=== PATIENT | male | born 1950 | race Caucasian/White ===

== ENCOUNTER 2016-12-18 18:12 | Emergency (ER) | payer MEDICARE, OTHER ==
[2015-06-09 11:53] VITALS: BMI 30.4
[~2016-12-18 18:12] MED LIST: FLUTICASONE PRO16 GM NASAL; HYDROCODON-ACE1 EAC7 PO; LISINOPRIL10 MG PO; MOBIC7.5 MG PO; NORVASC10 MG PO; OSTEO BI-FLEX1 EAC1 PO; PLAVIX75 MG PO
[2016-12-18 19:24] LABS: BASOPHILS 0.8 % (0-2); EOSINOPHILS 7.1 % (0-7); HEMATOCRIT 37.5 % (42.0-54.0); LYMPHOCYTES 32.9 % (15-50); MCHC 34.7 g/dL (31.0-37.0); MCV 98.2 fL (80.0-100.0); MEAN PLATELET VOLUME 10.1 fL (7.4-10.4); MONOCYTES 15.3 % (2-11); NEUTROPHILS 43.9 % (40-80); PLATELET COUNT 93 10x3/uL (130-400); RBC 3.82 10x6/uL (4.20-6.10); RDW 13.8 % (11.5-14.5); WBC 3.8 10x3/uL (4.8-10.8)
[2016-12-18 19:34] LABS: ALBUMIN 3.1 g/dL (3.4-5.0); ANION GAP 12.8 mmol/L (8-16); BILIRUBIN - TOTAL 0.56 mg/dL (0.2-1.3); CALCIUM 9.4 mg/dL (8.5-10.1); CARBON DIOXIDE 25.3 mmol/L (21.0-32.0); CREATININE - SERUM 1.2 mg/dL (0.6-1.3); POTASSIUM - SERUM 4.1 mmol/L (3.5-5.1); PROTEIN - SERUM 7.7 g/dL (6.4-8.2)
[2016-12-18 20:01] LABS: PLATELET ESTIMATE DECREASED
[2016-12-18 21:20] LABS: CKMB 0.1 U/L (0.0-3.6); CREATINE KINASE 84 UL (21-232)
[2016-12-18 21:32] LABS: APPEARANCE CLEAR (CLEAR); BILIRUBIN NEGATIVE (NEGATIVE); COLOR YELLOW (YELLOW); GLUCOSE NEGATIVE (NEGATIVE); KETONE NEGATIVE (NEGATIVE); LEUKOCYTE ESTERASE NEGATIVE (NEGATIVE); NITRITE NEGATIVE (NEGATIVE); PROTEIN NEGATIVE (NEGATIVE); UROBILINOGEN NORMAL (NORMAL)
[2016-12-19] MEDS ORDERED: LIPITOR40 MG PO (12:17)
[2016-12-19] MEDS ORDERED: ISOSORBIDE MONO30 M1 PO (12:18)
[2016-12-19] MEDS ORDERED: GLUCOPHAGE500 MG PO (12:18)
[2016-12-19] MEDS ORDERED: LOW DOSE ASPIRI81 M1 PO (12:20)
== END 2016-12-18 22:20 | disposition home or self-care (01) ==
LOC: D.ER 18:12
PROVIDERS: Emergency Medicine
DX: E86.0 Dehydration (principal); I10 Essential (primary) hypertension; E11.9 Type 2 diabetes mellitus without complications; R00.1 Bradycardia, unspecified

== ENCOUNTER 2016-12-19 05:48 | Observation (INO) | payer MEDICARE, OTHER ==
[~2016-12-19] VITALS: Ht 185.4 cm; Wt 85.7 kg
--- NOTE | ~2016-12-19 | HEMODYNAMI ---
PATIENT:YANDY TIRADO MEDICAL RECORD: [id number] : 50 LOCATION:D. D.2118 ADMISSION DATE: 12/19/16 Generatedon:12/19/201614:05 Patient name: YANDY TIRADO Patient #: [id number] SSN: DO B: 1950 Date of study: 12/19/2016 Page: Of Hemodynamic Procedure Report Patient Data Patient Demographics Procedure consent was obtained First Name: YANDY Gender: Male Last Name: CANDIDA : 1950 Middle Initial: D Age: 66 year(s) Patient #: [id number] Race: Additional ID: [id number] Contact details [address]: [address] [place] [address] cutoff State: [place] City: [place] Zip code: [address] Past Medical History Allergies Allergen Reaction Date Comments Reported Penicillins 06/11/2015 Other allergy 12/19/2016 PCN Admission Admission Data Admission Date: 12/19/2016 Admission Time: 6:42 Admit Source: Other Room #: D.2118 Procedure Procedure Types Cath Procedure Diagnostic Procedure [facility] w/Coronaries Miscellaneous Procedures Moderate Sedation up to 15 minutes Procedure Description Procedure Date Procedure Date: 12/19/2016 Procedure Start Time: 13:53 Procedure End Time: 14:03 Procedure Staff Name Function Jeffrey Payan MD Performing Physician Meenakshi Neff RT Scrub Jossie Salazar RN Nurse Alistair Trejo RT Monitor Procedure Data Cath Procedure Fluoroscopy Diagnostic fluoroscopy Total fluoroscopy Time: 1.9 time: 1.9 min min Diagnostic fluoroscopy Total fluoroscopy dose: 448 dose: 448 mGy mGy Contrast Material Contrast Material Type Amount (ml) Isovue 300 53 Entry Location Entry Primary Successful Side Size Upsize Upsize Entry Closure Aviles ccessful Closure Location (Fr) 1 (Fr) 2 (Fr) Remarks Device Remarks Radial Right 6 Fr Mechanical artery Short Compression Estimated blood loss: 5 ml Diagnostic catheters Device Type Used For End Catheter Placement Terumo 5Fr Nabil 110cm Procedure catheter Diagnostic Terumo 5Fr Procedure [place] 110cm catheter Procedure Complications No complications Procedure Medications Medication Administration Route Dosage Oxygen NC 3 l/min Heparin Flush Bag added to field 2 bags (1000units/500ml NS) Lidocaine 2% added to field 20 0.9% NaCl I.V. 100 ml/hr Versed I.V. 2 mg Fentanyl I.V. 50 mcg Versed I.V. 1 mg Fentanyl I.V. 50 mcg Versed I.V. 0.5 mg Fentanyl I.V. 50 mcg Hemodynamics Rest Heart Rate: 81 (bpm) Snapshots Pre Cath Intra NCS Post Cath Vital Signs Time Heart Resp SPO2 NIBP (mmHg) Rhythm Pain Sedation Rate (ipm) (%) Status Level (bpm) 13:28:30 80 20 96 164/91(138) NSR 0 (11) 10(A) , No pain 13:32:48 82 19 94 137/109(129) NSR 0 (11) 10(A) , No pain 13:37:00 81 18 93 145/87(125) NSR 0 (11) 10(A) , No pain 13:41:18 80 17 92 146/83(121) NSR 0 (11) 10(A) , No pain 13:45:30 83 18 93 149/86(132) NSR 0 (11) 10(A) , No pain 13:49:42 87 20 91 138/89(132) NSR 0 (11) 10(A) , No pain 13:53:52 86 15 92 139/85(114) NSR 0 (11) 9(A) , No pain 13:57:58 104 15 93 116/74(96) NSR 0 (11) 9(A) , No pain 14:03:11 100 16 94 135/85(114) NSR 0 (11) 10(A) , No pain Medications Time Medication Route Dose Verified Delivered Reason Notes Effe ctiveness by by 13:27:52 Oxygen NC 3 Jossie Jossie used for l/min Marie Marie key holder RN 13:28:01 Heparin Flush added 2 Jossie Jossie used for Bag to bags Marie Marie procedure (1000units/500ml field RN RN NS) 13:28:09 Lidocaine 2% added 20ml Jossie Jossie used for to vial Marie Marie procedure field RN RN 13:28:18 0.9% NaCl I.V. 100 Jossie Jossie used for ml/hr Marie Marie key holder RN 13:48:41 Versed I.V. 2 mg Jossie Jossie for Marie Marie sedation RN RN 13:48:49 Fentanyl I.V. 50 Jossie Jossie for mcg Marie Marie sedation RN RN 13:52:21 Versed I.V. 1 mg Jossie Jossie for Marie Marie sedation RN RN 13:52:37 Fentanyl I.V. 50 Jossie Jossie for mcg Marie Marie sedation RN RN 13:56:16 Fentanyl I.V. 50 Jossie Jossie for mcg Marie Marie sedation RN RN 13:56:51 Versed I.V. 0.5 Jossie Jossie for mg Marie Marie sedation RN maitre d' Log Time Note 13:00:00 Meenakshi Counts RT(R) sent for patient. Start room use. 13:19:26 Informed consent obtained and on chart 13:19:29 Admit Source: Other 13:20:05 Time tracking: Regular hours 13:20:08 Plan of Care:Hemodynamics will remain stable., Cardiac rhythm will remain stable., Comfort level will be maintained., Respiratory function will remain adequate., Patient/ family verbilizes understanding of procedure., Procedure tolerated without complication., Recovers from procedure without complications.. 13:20:14 Patient received from Med II to CCL 2 Alert and oriented. Tansferred to table in Supine position. 13:20:15 Warm blankets applied, and chico hugger turned on for patient comfort. 13:20:15 Correct patient and procedure confirmed by team. 13:20:15 ECG and BP/O2 sat monitors applied to patient. 13:27:26 Vital chart was started 13:27:52 Oxygen 3 l/min NC was administered by Jossie Salazar RN; used for procedure; 13:28:01 Heparin Flush Bag (1000units/500ml NS) 2 bags added to field was administered by Jossie Salazar RN; used for procedure; 13:28:09 Lidocaine 2% 20ml vial added to field was administered by Jossie Salazar RN; used for procedure; 13::18 0.9% NaCl 100 ml/hr I.V. was administered by Jossie Salazar RN; used for procedure; 13:33:30 Baseline sample Acquired. 13:33:35 Rhythm: sinus rhythm 13:33:40 Full Disclosure recording started 13:39:43 Lab Result : Hemoglobin 13 g/dl 13:39:43 Lab Result : Hematocrit 37.5 % 13:39:43 Lab Result : BUN 20 mg/dl 13:39:43 Lab Result : Creatinine 1.2 mg/dl 13:40:47 H&P Date Dictated: 12/19/2016 Within 30 days and on chart.. 13:40:48 Pre-procedure instructions explained to patient. 13:40:49 Pre-op teaching completed and patient verbalized understanding. 13:40:51 Family in waiting room. 13:40:52 Patient NPO since Midnight. 13:41:11 Patient allergic to Other allergyPCN 13:41:19 Is the patient allergic to Iodine/contrast media? No. 13:41:21 Is patient on blood thinner?No 13:41:38 Patient diabetic? Yes. 13:42:01 If diabetic: On Metformin? Yes 13:42:06 If on Metformin: Last Dose? 12/18/2016 13:42:09 Previous problem with sedation/anesthesia? No ? 13:42:11 Snore? Yes 13:42:11 Sleep apnea? Yes 13:42:12 Deviated septum? No 13:42:14 Opens mouth fully? Yes 13:42:15 Sticks out tongue? Yes 13:42:18 Airway obstruction? No ? 13:42:21 Dentures? Yes in tight 13:42:26 Modified Rc's test Ulnar < 7 seconds 13:42:28 Patient pain scale 0/10 ?. 13:42:32 IV patent on arrival in left forearm with 0.9% NaCl at [facility]. 13:42:34 Lab results completed and on chart. 13:42:36 Right Radial & Right Groin area was prepped with chlora-prep and draped in sterile fashion 13:42:37 Alarms reviewed by R. N. 13:42:37 Sharps counted by scrub and verified by R.N. 13:42:41 Use device set Radial Dx 13:42:42 MBrace Wrist Support opened to sterile field. 13:42:42 Tegaderm 4 x 4 opened to sterile field. 13:42:43 Acist Manifold opened to sterile field. 13:42:44 Acist Hand Control opened to sterile field. 13:42:45 Acist Syringe opened to sterile field. 13:42:46 Medline Cath Pack opened to sterile field. 13:42:46 Bag Decanter opened to sterile field. 13:42:47 Terumo 6Fr Slender Glidesheath opened to sterile field. 13:42:47 St Hi 260cm J .035 wire opened to sterile field. 13:45:49 Zero performed for pressure channel P1 13:46:11 Physician arrived 13:46:11 --------ALL STOP TIME OUT------ 13:46:12 Final Timeout: patient, procedure, and site verified with staff and physician. All members of the team are in agreement. 13:46:21 Right Radial & Right Groin site verified by team. 13:46:24 Physical assessment completed. ASA score P 2 - A patient with mild systemic disease as per Jeffrey Payan MD. 13:47:22 Sedation plan: IV Moderate Sedation Versed, Fentanyl 13:48:41 Versed 2 mg I.V. was administered by Jossie Salazar RN; for sedation; 13:48:49 Fentanyl 50 mcg I.V. was administered by Jossie Salazar RN; for sedation; 13:52:21 Versed 1 mg I.V. was administered by Jossie Salazar RN; for sedation; 13:52:37 Fentanyl 50 mcg I.V. was administered by Jossie Salazar RN; for sedation; 13:53:12 Procedure started. 13:53:19 Local anesthetic to right radial artery with Lidocaine 2% by Jeffrey Payan MD.INITIAL ACCESS ONLY 13:53:33 A 6 Fr Short sheath was inserted into the Right Radial artery 13:54:40 A Terumo 5Fr Nabil 110cm catheter was advanced over the wire and used for Procedure. 13:55:06 LV gram done using ROTH 13:55:09 Injector settings: Ml/sec: 5, Volume: 15, 13:55:21 EF : 60 % 13:56:10 RCA angiography performed. 13:56:16 Fentanyl 50 mcg I.V. was administered by Jossie Salazar RN; for sedation; 13:56:23 Catheter exchanged over wire. 13:56:51 Versed 0.5 mg I.V. was administered by Jossie Salazar RN; for sedation; 13:57:14 A Diagnostic Terumo 5Fr [place] 110cm catheter was advanced over the wire and used for Procedure. 13:57:34 LCA angiography performed. 13:59:22 Catheter removed. 13:59:27 Terumo TR Band Standard opened to sterile field. 13:59:35 Sheath removed intact; hemostasis achieved with Mechanical Compression to the Right Radial artery. 13:59:36 Procedure ended.(Physican Out) 14:01:03 Fluoroscopy time 01.90 minutes. 14:01:13 Flurop Dose total: 448 14:01:13 Fluoroscopy dose: 448 mGy 14:01:17 Contrast amount:Isovue 300 53ml. 14:01:18 Sharps counted by scrub and verified by R.N. 14:01:20 TR band inflated with 11cc of air. 14:01:21 Insertion/operative site no bleeding no hematoma. 14:01:27 Post right radial artery:stable, soft, clean and dry 14:01:28 Post Procedure Pulses reassessed and unchanged 14:01:30 Post-procedure physical assessment completed. ASA score P 2 - A patient with mild systemic disease as per Jeffrey Payan MD. 14:01:32 Post procedure rhythm: unchanged. 14:01:33 Estimated blood loss: 5 ml 14:01:34 Post procedure instruction explained to patient.Patient verbalizes understanding. 14:01:35 Patient needs reinforcement of post procedure teaching. 14:02:16 Procedure type changed to Cath procedure, Diagnostic procedure, LHC, LHC w/Coronaries, Miscellaneous Procedures, Moderate Sedation up to 15 minutes 14:02:43 Procedure and supply charges have been captured, reviewed, submitted and are correct. 14:02:46 Procedure Complication : No complications 14:02:48 Vital chart was stopped 14:02:48 See physician's report for complete and final results. 14:02:50 Report given to PCU. 14:02:53 Patient transfered to PCU with Stretcher. 14:03:03 Procedure ended. 14:03:03 Full Disclosure recording stopped 14:03:05 End room use (Document Last) Device Usage Item Name Manufacture Quantity Catalog Hospital Part Current Minimal Lot# / Number Charge Number Stock Stock Serial# Code ra Advanced 140-0250-00 [id number] 30392 [id number] 5 Wrist Vascular Support Dynamics Tegaderm 4 3M 1 [id number] 109580 486185 943552 5 x 4 Acist Acist 1 47001 413872 027001 566095 5 Manifold [employer] Inc Acist Hand Acist 1 11723 836878 770913 210232 5 Control Medical Systems Inc Acist Acist 1 59607 425905 974917 918594 20 Syringe Medical Systems Inc Medline Cardinal 1 [id number] 611865 64039 365581 5 Cath Pack Health Bag Microtek 1 2002S 677306 64124 750451 5 Decanter Medical Inc. Terumo 6Fr Terumo 1 [id number] 070391 167913 617604 [address] Hi St Hi 1 186739 298440 624977 686469 30 260cm J .035 wire Terumo 5Fr Terumo 1 40-5898 201096 851406 308208 5 Nabil 110cm catheter Diagnostic Terumo 1 40-6894 941218 257019 431493 5 Terumo 5Fr [place] 110cm catheter Terumo TR Terumo 1 [id number] 690555 034622 797669 40 Band Standard Signature Audit [place] Stage Time Signature Unsigned Intra-Procedure 12/19/2016 Alistair Trejo 2:05:15 PM RT(R) Signatures Monitor : Alistair Trejo RT Signature : Date : Time : [facility] [address] [facility] [place] [address]
--- NOTE | ~2016-12-19 | DS ---
PATIENT:YANDY JACOBO :50 MEDICAL RECORD: [id number] DISCHARGE SUMMARY ADMISSION DATE: 12/19/16 DISCHARGE DATE: 12/19/16 DATE OF DISCHARGE: 12/19/2016. DISCHARGE DIAGNOSES: 1. Angina. 2. Coronary artery disease. 3. Previous percutaneous transluminal coronary angioplasty stent. 4. Hypertension. 5. Hyperlipidemia. HOSPITAL COURSE: Mr. Jacoob presents with anginal symptomatology; however, cardiac catheterization reveals no significant new disease, wide patency of the previously placed stent. He is discharged home with no change in his medications as he is already on Imdur. TRANSINT:[id number] Voice Confirmation ID: [id number] DOCUMENT ID: [id number] BELLA DEJESUS MD CC: [id number] DICTATION DATE: 12/19/161401 COMPLAINT EVALUATION SUPERVISOR: 12/20/16 0025 DIS IN 12/19/16 [facility] [address] [place] [address]
--- NOTE | ~2016-12-19 | OP ---
PATIENT NAME: YANDY TIRADO MEDICAL RECORD: [id number] :50 LOCATION:D.M2 D.2118 ADMISSION DATE:12/19/16 SURGEON: BELLA DEJESUS MD OPERATION DATE: 12/19/16 DATE OF OPERATION: 12/19/2016 PROCEDURES: 1. Left heart catheterization. 2. Selective coronary angiography. 3. Left ventriculogram. INDICATION: Chest pain compatible with angina. PROCEDURE IN DETAIL: After informed consent was obtained and after detailed explanation of risks, benefits as well as alternative therapies, the patient elected to proceed with angiogram and heart catheterization. The right femoral area was prepped and draped in normal sterile fashion. The right femoral artery was cannulated via modified Seldinger technique with placement of 5-Surinamese sheath. All catheters exchanged through this sheath. FINDINGS: Left ventriculogram was performed in standard 30-degree ROTH view, reveals good cardiac wall motion throughout all segments. Overall ejection fraction estimated at 55%. SELECTIVE CORONARY ANGIOGRAPHY: 1. Left main showed no significant angiographic disease. 2. Left anterior descending has moderate irregularities, but no flow-limiting stenosis. 3. The left circumflex has moderate irregularities, but no flow-limiting stenosis. 4. The right coronary has previously placed stent. This is widely patent with no significant restenosis and no disease elsewise. OVERALL IMPRESSION: Wide patency of the previously placed stent. No disease elsewise. Continue medical management of the coronary artery disease and cardiac risk factors. TRANSINT:[id number] Voice Confirmation ID: [id number] DOCUMENT ID: [id number] BELLA DEJESUS MD CC: [id number] DICTATION DATE: 12/19/16 1404 CORE DRIER: 12/19/162044 DIS IN 12/19/16 [facility] [address] [place] [id number]
[2016-12-19 07:01] LABS: CREATINE KINASE 78 UL (21-232); TROPONIN-I < 0.017 ng/mL (0.000-0.060)
[2016-12-19 08:07] VITALS: BP 147/82
[2016-12-19 10:42] VITALS: BP 147/82; BMI 24.9
[2016-12-19 12:06] VITALS: BP 118/67
[2016-12-19] MEDS ORDERED: LIPITOR40 MG PO (12:17)
[2016-12-19] MEDS ORDERED: ISOSORBIDE MONO30 M1 PO (12:18)
[2016-12-19] MEDS ORDERED: GLUCOPHAGE500 MG PO (12:18)
[2016-12-19] MEDS ORDERED: LOW DOSE ASPIRI81 M1 PO (12:20)
--- NOTE | 2016-12-19 14:28 | NUR ---
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 CLEAN CATH. TR BAND ON. SITE CLEAN WITHOUT ANY BLEEDING NOR EDEMA
[2016-12-19 14:44] VITALS: BP 134/79
[2016-12-19 15:10] VITALS: Ht 185.4 cm; Wt 85.7 kg
--- NOTE | 2016-12-19 19:39 | NUR ---
REVIEWED DISCHARGE INSTRUCTIONS WITH PT AND BOTH STATE UNDERSTANDING COPY GIVEN DCD LAC SALINE LOCK WITH IV CATHETER INTACT SITE FREE OF REDNESS OR EDEMA OCCLUSIVE DRSG APPLIED TO RT WRIST PT DISCHARGED HOME IN STABLE CONDITION WITH ALL PERSONAL BELONGINGS LEFT VIA W/C
== END 2016-12-19 18:19 | disposition home or self-care (01) ==
LOC: D.ER 05:48 → OBSVTIME 06:42 → D.M2 06:42
PROVIDERS: Emergency Medicine; ADMIT Internal Medicine Interventional Cardiology
DX: I25.119 Atherosclerotic heart disease of native coronary artery with unspecified angina pectoris (principal); I11.9 Hypertensive heart disease without heart failure; Z95.5 Presence of coronary angioplasty implant and graft; E78.5 Hyperlipidemia, unspecified

== ENCOUNTER → 2019-11-21 08:27 | Outpatient (CLI) | payer MEDICARE, OTHER ==
[2016-12-19 15:10] VITALS: BMI 24.9
[~2019-11-21 08:27] MED LIST changes: +GLUCOPHAGE500 MG PO; +ISOSORBIDE MONO30 M1 PO; +LIPITOR40 MG PO; +LOW DOSE ASPIRI81 M1 PO
== END | disposition home or self-care (01) ==
LOC: D.HCCECHO 08:27
PROVIDERS: ATTEND Internal Medicine Cardiovascular Disease
DX: I25.10 Atherosclerotic heart disease of native coronary artery without angina pectoris (principal)

== ENCOUNTER 2019-12-05 11:01 | Outpatient (CLI) | payer MEDICARE, OTHER ==
[~2019-12-05] VITALS: Ht 177.8 cm; Wt 104.0 kg
--- NOTE | ~2019-12-05 | HEMODYNAMI ---
PATIENT:YANDY TIRADO MEDICAL RECORD: [id number] : 50 LOCATION:[facility] ADMISSION DATE: 12/05/19 Generatedon:12/05/201915:31 Patient name: YANDY TIRADO Patient #: [id number] SSN: DO B: 1950 Date of study: 12/05/2019 Page: Of Hemodynamic Procedure Report Patient Data Patient Demographics Procedure consent was obtained First Name: YANDY Gender: Male Last Name: CANDIDA : 1950 [facility] Initial: D Age: 69 year(s) Patient #: [id number] Race: Additional ID: [id number] Contact details [address]: [address] [place] [address] cutoff State: [place] City: [place] Zip code: [address] Past Medical History Allergies Allergen Reaction Date Comments Reported Penicillins 06/11/2015 Other allergy 12/19/2016 PCN Other allergy 12/05/2019 PCN Admission Admission Data Admission Date: 12/05/2019 Admission Time: 11:01 Arrival Date: 12/05/2019 Arrival Time: 0:00 Admit Source: Other Insurance Payor: Medicare [facility] #: [id number] Height (in.): 70 BSA: 2.21 (m2) Height (cm.): 177.8 BMI: 32.9 (kg/m2) Weight (lbs.): 229.28 Weight (kg.): 104 Lab Results Lab Result Date: 12/05/2019 Lab Result Time: 0:00 Biochemistry Name Units Result Min Max BUN mg/dl 18 --(---*)-- 7 18 Creatinine mg/dl 1.3 --(---*)-- 0.6 1.3 eGFR ml/min 58 *-(----)-- 90 120 NONAFRICAN CBC Name Units Result Min Max Hematocrit % 29.7 *-(----)-- 42 54 Hemoglobin g/dl 10 *-(----)-- 13.5 17.5 Procedure Procedure Types Cath Procedure Diagnostic Procedure [facility] w/Coronaries Sedation Charges Moderate Sedation up to 45 minutes PCI Procedure Coronary Stent Coronary Stent Initial Hemochron ACT Test Procedure Description Procedure Date Procedure Date: 12/05/2019 Procedure Start Time: 14:43 Procedure End Time: 15:27 Procedure Staff Name Function Tommy Christopher MD Performing Physician Graciela Andre RT Monitor Beryl Goodrich RT Scrub Parul Thomason RN Nurse Juanis Miranda RT Security Analyst Procedure Data Cath Procedure Fluoroscopy Diagnostic fluoroscopy Total fluoroscopy Time: time: 14.1 min 14.1 min Diagnostic fluoroscopy Total fluoroscopy dose: dose: 2058 mGy 2058 mGy Contrast Material Contrast Material Type Amount (ml) Isovue 370 161 Entry Location Entry Primary Successful Side Size Upsize Upsize Entry Closure Aviles ccessful Closure Location (Fr) 1 (Fr) 2 (Fr) Remarks Device Remarks Radial Right 6 Fr Mechanical artery Short Compression Femoral Right 6 Fr Exoseal artery Short Estimated blood loss: 10 ml Diagnostic catheters Device Type Used For End Catheter Placement DIAGNOSTIC [place] 110cm 5 Procedure Fr catheter ([id number]) DIAGNOSTIC JL 3.5 5Fr Procedure catheter ([id number]) Procedure Complications No complications Procedure Medications Medication Administration Route Dosage Oxygen etCO2 Nasal cannula 2 l/min Lidocaine 2% added to field 20 Heparin Flush Bag added to field 2 bags (1000units/500ml NS) 0.9% NaCl I.V. 100 ml/hr Radial Cocktail added to field 1 syringe (Verapamil 2mg/Nitro 400mcg/Heparin 1500units) Versed I.V. 1 mg Fentanyl I.V. 50 mcg Versed I.V. 1 mg Fentanyl I.V. 50 mcg Radial Cocktail I.A. 1 syringe (Verapamil 2mg/Nitro 400mcg/Heparin 1500units) Versed I.V. 1 mg Versed I.V. 1 mg Fentanyl I.V. 50 mcg Heparin Bolus I.V. 9000 units Fentanyl I.V. 50 mcg Plavix P.O. 600 mg Hemodynamics Rest BSA: 2.21 (m2) HGB: 10 (g/dl) O2 Consumption: Estimated: 253.69 (ml/min) O2 Cons umption indexed: Estimated:114.79 (ml/min/m) Heart Rate: 67 (bpm) Pressure Samples Time Site Value (mmHg) Purpose Heart Use Rate(bpm) 14:48 LV 131/28,19 Snapshot 86 14:48 AO 116/63(88) Pullback 81 14:48 LV 135/2,9 Pullback 81 Gradients Valve Time Site 1 Site 2 Mean SEP/DFP Peak To Heart Use (mmHg) (sec/min) Peak Rate (mmHg) (bpm) Aortic 14:48 LV AO 16 21 19 81 135/2,9 116/63(88) Calculations Valve P-P Mean Valve Index Valve Source Name Gradient Area Flow (cm2) Aortic 19 16 19 16 Snapshots Pre Cath Intra NCS Post Cath Vital Signs Time Heart Resp SPO2 etCO2 NIBP (mmHg) Rhythm Pain Sedation Rate (ipm) (%) (mmHg) Status Level (bpm) 14:25:09 71 17 97 0 163/84(133) NSR 0 (11) 10(A) , No pain 14:29:33 64 18 92 32.9 151/82(133) NSR 0 (11) 10(A) , No pain 14:33:48 66 16 93 34.3 138/78(119) NSR 0 (11) 10(A) , No pain 14:38:06 65 15 94 35.1 140/78(123) NSR 0 (11) 10(A) , No pain 14:42:24 67 12 93 33.6 138/76(109) NSR 0 (11) 10(A) , No pain 14:46:42 76 12 93 33.6 133/76(92) NSR 0 (11) 9(A) , No pain 14:50:56 77 15 94 35.1 131/72(104) NSR 0 (11) 9(A) , No pain 14:55:22 69 11 93 33.6 134/70(100) NSR 0 (11) 9(A) , No pain 14:59:38 67 16 96 32.9 143/81(118) NSR 0 (11) 9(A) , No pain 15:03:56 68 15 95 32.9 138/76(119) NSR 0 (11) 9(A) , No pain 15:08:12 67 17 98 33.6 142/80(122) NSR 0 (11) 9(A) , No pain 15:12:32 67 14 96 36.6 138/77(124) NSR 0 (11) 9(A) , No pain 15:16:50 69 13 98 37.4 142/78(118) NSR 0 (11) 9(A) , No pain 15:20:03 75 16 97 37.4 145/76(117) NSR 0 (11) 9(A) , No pain 15:24:21 76 13 96 38.9 141/80(113) NSR 0 (11) 10(A) , No pain 15:28:37 68 11 95 37.4 155/84(132) NSR 0 (11) 10(A) , No pain Medications Time Medication Route Dose Verified Delivered Reason Not es Effectiveness by by 14:27:32 Oxygen etCO2 2 l/min Tommy Buffie used for Nasal Ashwin Thomason RN procedure cannula 14:27:40 Lidocaine 2% added 20ml Tommy Tommy for local to vial Ashwin Christopher MD anesthetic field 14:28:29 Heparin Flush added 2 bags Tommy Tommy used for Bag to Ashwin Christopher MD procedure (1000units/500ml field NS) 14:28:37 0.9% NaCl I.V. 100 Tommy Buffie Per physician ml/hr Ashwin Thomason RN 14:28:54 Radial Cocktail added 1 Tommy Tommy for (Verapamil to syringe Ashwin Christopher MD vasodilation 2mg/Nitro field 400mcg/Heparin 1500units) 14:34:49 Versed I.V. 1 mg Tommy Buffie for sedation Ashwin Thomason RN 14:34:55 Fentanyl I.V. 50 mcg Tommy Buffie for sedation Ashwin Thomason RN 14:39:06 Versed I.V. 1 mg Tommy Buffie for sedation Ashwin Thomason RN 14:39:09 Fentanyl I.V. 50 mcg Tommy Buffie for sedation Ashwin Thomason RN 14:44:42 Versed I.V. 1 mg Tommy Buffie for sedation Ashwin Thomason RN 14:45:43 Radial Cocktail I.A. 1 Tommy Buffie for (Verapamil syringe Ashwin Thomason RN vasodilation 2mg/Nitro 400mcg/Heparin 1500units) 14:57:16 Versed I.V. 1 mg Tommy Buffie for sedation Ashwin Thomason RN 15:09:28 Fentanyl I.V. 50 mcg Tommy Buffie for sedation Christopher MD Thomason RN 15:13:16 Heparin Bolus I.V. 9000 Tommy Buffie for hadley ified units Ashwin Thomason RN anticoagulation with dr christopher. 15:19:11 Fentanyl I.V. 50 mcg Tommy Annaie for sedation Ashwin Thomason RN 15:25:20 Plavix P.O. 600 mg Tommy Annaie for Ashwin Thomason RN antiplatelet therapy Procedure Log Time Note 14:14:16 Informed consent obtained and on chart 14:15:33 Juanis Ruben RT(R) sent for patient. Start room use. 14:16:01 Lab Result : BUN 18 mg/dl 14:16:01 Lab Result : eGFR NONAFRICAN 58 ml/min 14:16:01 Lab Result : Creatinine 1.3 mg/dl 14:16:01 Lab Result : Hemoglobin 10 g/dl 14:16:01 Lab Result : Hematocrit 29.7 % 14:16:05 Arrival Date: 12/05/2019 12:00:00 AM 14:16:06 Admit Source: Other 14:16:13 Insurance Payor : Medicare 14:16:34 Patient Height : 70 inches 14:16:38 Patient Weight : 229.28 lbs 14:17:55 Procedure Status Elective Heart Cath (OP). 14:18:53 Time tracking: Regular hours (M-F 7:00 - 5:00) 14:18:57 Plan of Care:Hemodynamics will remain stable., Cardiac rhythm will remain stable., Comfort level will be maintained., Respiratory function will remain adequate., Patient/ family verbilizes understanding of procedure., Procedure tolerated without complication., Recovers from procedure without complications.. 14:19:03 Patient received from Pre/Post Procedure Room to CCL 1 Alert and oriented. Tansferred to table in Supine position. 14:19:05 Warm blankets applied, and chico hugger turned on for patient comfort. 14:19:05 Correct patient and procedure confirmed by team. 14:19:06 ECG and BP/O2 sat monitors applied to patient. 14:19:21 H&P Date Dictated: 11/09/2019 Within 30 days and on chart.. 14:19:22 Pre-procedure instructions explained to patient. 14:19:23 Pre-op teaching completed and patient verbalized understanding. 14:19:25 Family in waiting room. 14:19:26 Patient NPO since Midnight. 14:19:34 Patient allergic to Other allergyPCN 14:19:37 Is the patient allergic to Iodine/contrast media? No. 14:19:42 Alarms reviewed by Filemon N. 14:19:42 Sharps counted by scrub and verified by R.N. 14:19:45 Lab results completed and on chart. 14:19:49 Stress Test: yes; abnormal ANTERIOR AND INFERIOR 14:21:48 Risk of Mortality: 0.1 14:21:51 Risk of blood transfusion: 3.3 14:21:54 Risk of IVONNE: 1.2 14:21:58 Right Radial & Right Groin area was prepped with chlora-prep and draped in sterile fashion 14:23:12 Full Disclosure recording started 14:23:14 Was the patient premedicated? No 14:23:17 Is patient on blood thinner?No 14:23:19 Patient diabetic? Yes. 14:23:21 If diabetic: On Metformin? No 14:23:25 ----Pre-sedation anethsthesia assessment.---- 14:23:27 Previous problem with sedation/anesthesia? No ? 14:23:28 Snore? Yes 14:23:29 Sleep apnea? Yes 14:23:31 Deviated septum? No 14:23:32 Opens mouth fully? Yes 14:23:33 Sticks out tongue? Yes 14:23:35 Airway obstruction? No ? 14:23:37 Dentures? No ? 14:23:39 Pre procedure: right dorsailis pedis pulse 2+ Normal; easily identifiable; not easily obliterated 14:23:41 Modified Rc's test Ulnar < 7 seconds 14:23:43 Patient pain scale 0/10 ?. 14:23:49 IV patent on arrival in left antecubital with 0.9% NaCl at [facility]. 14:23:54 Vital chart was started 14:24:07 Rhythm: sinus rhythm 14:24:17 Baseline sample Acquired. 14:27:32 Oxygen 2 l/min etCO2 Nasal cannula was administered by Parul Thomason RN; used for procedure; Verbal order read back and verified. 14:27:40 Lidocaine 2% 20ml vial added to field was administered by Tommy Christopher MD; for local anesthetic; Verbal order read back and verified. 14:28:29 Heparin Flush Bag (1000units/500ml NS) 2 bags added to field was administered by Tommy Christopher MD; used for procedure; Verbal order read back and verified. 14:28:37 0.9% NaCl 100 ml/hr I.V. was administered by Parul Thomason RN; Per physician; Verbal order read back and verified. 14:28:54 Radial Cocktail (Verapamil 2mg/Nitro 400mcg/Heparin 1500units) 1 syringe added to field was administered by Tommy Christopher MD; for vasodilation; Verbal order read back and verified. 14:29:05 --------ALL STOP TIME OUT------ 14:29:06 Final Timeout: patient, procedure, and site verified with staff and physician. All members of the team are in agreement. 14:29:08 Right Radial & Right Groin site verified by team. 14:29:12 Fire Safety Assessment: A--An alcohol-based skin anteseptic being used preoperatively., C--Open oxygen or nitrous oxide is being used., D--An ESU, laser, or fiber-optic light is being used. 14:29:16 Physical assessment completed. ASA score P 2 - A patient with mild systemic disease as per Tommy Christopher MD. 14:29:20 3a) 45-59 Moderately reduced kidney function. 14:29:24 Maximum allowable contrast dose (3.7 X eGFR X 0.75)161 ml. 14:29:28 Sedation plan: IV Moderate Sedation Medication:Versed, Fentanyl 14:32:37 Use device set Radial Dx or PCI 14:32:38 ACIST Syringe (75358) opened to sterile field. 14:32:39 Medline Cath Pack ([id number]) opened to sterile field. 14:32:39 Bag Decanter () opened to sterile field. 14:32:40 ACIST Hand Control (13029) opened to sterile field. 14:32:40 ACIST Manifold (34116) opened to sterile field. 14:32:41 MBrace Wrist Support ([id number]) opened to sterile field. 14:32:44 EMERALD Guide Wire (379-715) opened to sterile field. 14:32:44 SHEATH 6FR RAIN (0613871) opened to sterile field. 14:34:49 Versed 1 mg I.V. was administered by Parul Thomason RN; for sedation; Verbal order read back and verified. 14:34:55 Fentanyl 50 mcg I.V. was administered by Parul Thomason RN; for sedation; Verbal order read back and verified. 14:39:06 Versed 1 mg I.V. was administered by Parul Thomason RN; for sedation; Verbal order read back and verified. 14:39:09 Fentanyl 50 mcg I.V. was administered by Parul Thomason RN; for sedation; Verbal order read back and verified. 14:43:34 Procedure started. 14:43:41 Local anesthetic to right radial artery with Lidocaine 2% by Tommy Christopher MD.INITIAL ACCESS ONLY 14:44:42 Versed 1 mg I.V. was administered by Parul Thomason RN; for sedation; Verbal order read back and verified. 14:45:08 A 6 Fr Short sheath was inserted into the Right Radial artery 14:45:43 Radial Cocktail (Verapamil 2mg/Nitro 400mcg/Heparin 1500units) 1 syringe I.A. was administered by Parul Thomason RN; for vasodilation; Verbal order read back and verified. 14:45:54 A DIAGNOSTIC [place] 110cm 5 Fr catheter (772007) was advanced over the wire and used for Procedure. 14:47:28 LV gram done using ROTH 14:47:32 Injector settings: Ml/sec: 5, Volume: 15, 14:48:08 LV hemodynamics recorded. 14:48:20 EF : 55 % 14:48:43 RCA angiography performed. 14:48:50 Injector settings: Ml/sec: 3, Volume: 6, 14:50:55 Catheter exchanged over wire. 14:51:53 GUIDE 5FR EBU 3.5 catheter ([id number]) opened to sterile field. 14:54:23 Catheter exchanged over wire. 14:54:48 GUIDE 5FR EBU 4.0 catheter ([id number]) opened to sterile field. 14:57:16 Versed 1 mg I.V. was administered by Parul Thomason RN; for sedation; Verbal order read back and verified. 14:57:39 Catheter exchanged over wire. 14:58:46 A DIAGNOSTIC JL 3.5 5Fr catheter ([id number]) was advanced over the wire and used for Procedure. 14:59:43 LCA angiography performed. 14:59:47 Injector settings: Ml/sec: 3, Volume: 6, 14:59:59 ACCDominant side:Left 15:04:34 Catheter exchanged over wire. 15:04:34 Proceeding to intervention. 15:04:41 Use device set CHRISTOPHER PCI 15:04:44 INFLATOR Merit Owenk (TV1649) opened to sterile field. 15:04:45 TUBING High Pressure Extension Tubing (Christopher) ([id number]) opened to sterile field. 15:04:47 BMW 300cm [place] 2 J wire ([id number]) opened to sterile field. 15:04:56 GUIDE 6FR JL 3.5 SH catheter ([id number]) opened to sterile field. 15:08:25 UNABLE TO ENGAGE GUIDE RADIAL PROCEEDING TO GROIN. 15:08:49 SHEATH 6FR [place] (JME493) opened to sterile field. 15:09:28 Fentanyl 50 mcg I.V. was administered by Parul Thomason RN; for sedation; Verbal order read back and verified. 15:09:31 Local anesthetic to right femoral artery with Lidocaine 2% by Tommy Christopher MD.ADDITIONAL ACCESS 15:11:00 A 6 Fr Short sheath was inserted into the Right Femoral artery 15:11:37 GUIDE 6FR XBLAD 3.5 catheter ([id number]) opened to sterile field. 15:13:16 Heparin Bolus 9000 units I.V. was administered by Parul Thomason RN; for anticoagulation; verified with dr christopher. Verbal order read back and verified. 15:14:39 Pre PCI Site: [place] has 80% stenosis. 15:15:37 6 Fr XBLAD 3.5 guide catheter was inserted over the wire 15:15:42 BMW 300 wire advanced. 15:15:45 Wire advanced across lesion. 15:19:11 Fentanyl 50 mcg I.V. was administered by Parul Thomason RN; for sedation; Verbal order read back and verified. 15:19:59 Place stent Inflation Number: 1 A INTEGRITY RX 3.5 x 22 stent ([id number]) was prepped and advanced across the Prox CX 80. The stent was deployed at 12 BETSY for 0:00 (min:sec) . 15:20:52 EXOSEAL 6Fr (EX600) opened to sterile field. 15:20:54 ZEPHYR REGULAR TR BAND (975751) opened to sterile field. 15:21: Stent catheter was removed intact over wire. 15:21: Wire removed. 15:21:02 Guide catheter removed. 15::57 Sheath removed intact; hemostasis achieved with Mechanical Compression to the Right Radial artery. 15:22:03 Sheath removed intact; hemostasis achieved with Exoseal to the Right Femoral artery. 15:22:12 Fluoroscopy time 14.10 minutes. 15::18 Fluoroscopy dose: 8 mGy 15:: Flurop Dose total: 2057 15::19 Procedure ended.(Physican Out) 15:22:26 Dose Area Product 06888 mGy/cm. 15:22:30 Contrast amount:Isovue 370 161ml. 15:22:32 Maximum allowable dose exceeded? No. 15::33 Sharps counted by scrub and verified by R.N. 15:22:37 Burke band inflated with 10cc of air. 15:22:42 Post-op/insertion site Right Femoral artery dressed using a 4 x 4 and Tegaderm. 15:22:48 Post right femoral artery:stable, clean and dry, unstable 15:22:50 Post Procedure Pulses reassessed and unchanged 15:22:53 Post procedure: right dorsailis pedis pulse 2+ Normal; easily identifiable; not easily obliterated. 15:22:56 Post-procedure physical assessment completed. ASA score P 2 - A patient with mild systemic disease as per Tommy Christopher MD. 15:22:59 Post procedure rhythm: unchanged. 15:23:01 Estimated blood loss: 10 ml 15:23:03 Post procedure instruction explained to patient.Patient verbalizes understanding. 15:23:04 Patient needs reinforcement of post procedure teaching. 15:24:06 Procedure type changed to Cath procedure, Diagnostic procedure, LHC, C w/Coronaries, Sedation Charges, Moderate Sedation up to 45 minutes, PCI procedure, Coronary Stent, Coronary Stent Initial, Hemochron ACT Test 15:25:20 Plavix 600 mg P.O. was administered by Parul Thomason RN; for antiplatelet therapy; Verbal order read back and verified. 15:27:12 Procedure and supply charges have been captured, reviewed, submitted and are correct. 15:27:15 Procedure Complication : No complications 15:27:19 [facility] Findings: MVD- PCI performed (see procedure note) 15:27:23 Operative report dictated upon procedure completion. 15:27:24 See physician's report for complete and final results. 15:27:28 Report given to Pre/Post Procedure Room. 15:27:30 Patient transfered to Pre/Post Procedure Room with Stretcher. 15:27:34 Procedure ended. 15:27:34 Full Disclosure recording stopped 15:28:19 Vital chart was stopped 15:28:20 End room use (Document Last) 15:28:53 ACT drawn and resulted at out of range high seconds. (normal therapeutic range 180-240 seconds). 15:29:42 End room use (Document Last) 15:29:55 End room use (Document Last) Intervention Summary Intervention Notes Time ActionType Lesion and Equipment Action# Pressure Duration Attributes Used 15:19:59 Place stent Prox CX INTEGRITY RX 1 12 00:00 3.5 x 22 stent ([id number]) Device Usage Item Name Manufacture Quantity Catalog Hospital Part Current Minim al Lot# / Number Charge Number Stock Stock Serial# Code ACIST Acist 1 19335 373769 559398 396084 20 Syringe Medical (37657) Systems Inc Medline Cath Medline 1 [id number] 106009 87231 901301 5 Pack ([id number]) Bag Decanter Microtek 1 2002S 255887 16431 496803 5 (2001S) Medical Inc. ACIST Hand Acist 1 02359 028884 647429 375481 5 Control Medical (43734) Systems Inc ACIST Acist 1 66954 382789 846498 667538 5 Manifold Medical (02923) Systems Inc MBrace Wrist Advanced 1 140-0250-00 485812 00618 955390 5 Support Vascular (252396178) Dynamics EMERALD Cardinal 1 502-455 386709 910518 132343 5 Guide Wire Health (730-455) SHEATH 6FR Cardinal 1 [id number] 120566 9547946 402887 5 [facility] InCights Mobile Solutions (7766492) DIAGNOSTIC Terumo 1 40-9383 625593 593453 119044 5 [place] 110cm 5 Fr catheter (022351) GUIDE 5FR Medtronic 1 [id number] 175785 367544 723977 1 EBU 3.5 catheter ([id number]) GUIDE 5FR Medtronic 1 [id number] 631180 997887 358263 1 EBU 4.0 catheter ([id number]) DIAGNOSTIC Cardinal 1 [id number] 618048 909007 847173 5 JL 3.5 5Fr Health catheter (256327R) INFLATOR Merit 1 OI5379 107935 838429 959329 15 Merit Medical BasixCompak (GX1013) TUBING High Merit 1 [id number] 591660 30590 336509 10 Pressure Medical Extension Tubing (Christopher) (SF5336P) BMW 300cm [place]oto 1 [id number] 102870 091906 162853 5 [place] 2 Vascular J wire (8380273C) GUIDE 6FR JL Medtronic 1 [id number] 032666 26865 889331 0 3.5 SH catheter ([id number]) SHEATH 6FR Terumo 1 TQD059 066305 787710 608503 40 [place] (ZCS909) GUIDE 6FR Cardinal 1 [id number] 825601 597876 809626 10 XBLAD 3.5 Health catheter (66521824) INTEGRITY RX Medtronic 1 [id number] 790632 184070 336013 5 [id number] 3.5 x 22 stent ([id number]) EXOSEAL 6Fr Cardinal 1 EX600 785488 362054 622215 10 (EX600) Health ZEPHYR Cardinal 1 561380 100989 8944940 847739 5 REGULAR TR Health BAND (167913) Signature Audit [place] Stage Time Signature Unsigned Intra-Procedure 12/05/2019 Graciela Andre 3:29:42 PM RT(R) Intra-Procedure 12/05/2019 Parul Thomason RN 3:29:56 PM Intra-Procedure 12/05/2019 Tommy Christopher MD 3:31:08 PM [facility] [address] [place] [address]
[2019-12-05] MEDS ORDERED: COZAAR50 MG PO (11:24)
[2019-12-05] MEDS ORDERED: MULTI-DAY VITAM1 TAB PO (11:25)
[2019-12-05] MEDS ORDERED: XIFAXAN550 MG PO (11:27)
[2019-12-05] MEDS ORDERED: ACULAR 0.5 % OPH5 ML EACH EYE (11:29)
[2019-12-05] MEDS ORDERED: LEXAPRO10 MG PO (11:29)
[2019-12-05 11:36] VITALS: BP 153/70; Ht 177.8 cm; Wt 104.0 kg
[2019-12-05 12:03] LABS: BASOPHILS 0.3 % (0-2); EOSINOPHILS 7.8 % (0-7); HEMATOCRIT 29.7 % (42.0-54.0); LYMPHOCYTES 22.9 % (15-50); MCH 34.8 pg (26.0-34.0); MCHC 33.7 g/dL (31.0-37.0); MCV 103.5 fL (80.0-100.0); MEAN PLATELET VOLUME 8.9 fL (7.4-10.4); MONOCYTES 8.7 % (2-11); NEUTROPHILS 60.3 % (40-80); RBC 2.87 10x6/uL (4.20-6.10); RDW 14.2 % (11.5-14.5); WBC 3.3 10x3/uL (4.8-10.8)
[2019-12-05 12:07] LABS: PLATELET COUNT 63 10x3/uL (130-400)
[2019-12-05 12:34] LABS: ANION GAP 10.9 mmol/L (8-16); CARBON DIOXIDE 23.5 mmol/L (21.0-32.0); CHOL - HDL RATIO 2.9 ratio (2.3-4.9); CREATININE - SERUM 1.3 mg/dL (0.6-1.3); LDL-HDL RATIO 1.6 ratio (1.5-3.5); POTASSIUM - SERUM 4.4 mmol/L (3.5-5.1)
[2019-12-05 12:44] LABS: PLATELET ESTIMATE DECREASED
[2019-12-05 13:03] LABS: APTT 38.1 SECONDS (22.8-39.4)
[2019-12-05 13:36] LABS: INR 1.48 (0.85-1.17); PROTIME 17.8 SECONDS (11.6-15.0)
--- NOTE | 2019-12-05 15:39 | NUR ---
PT RECEIVED VIA STRETCHER FROM COMPLIANCE AND CONTROL ANALYST FOR RECOVERY. PT AWAKE BUT VERY DROWSY. PT DENIES PAIN OR DISCOMFORT AT THIS TIME. IV PATENT INFUSING VIA L ARM PER ORDERS. PT PLACED ON CARDIAC MONITORS AND O2 VIA NC AT 2L. ZYPHER BAND AND [id number] TO R WRIST/ARM, DRESSING CDI NO S/S HEMATOMA NOTED. ARM PINK AND WARM, CAP REFILL BRISK. R GROIN W 6FR EXOCELE, DRESSING CDI NO S/S BLEEDING OR HEMATOMA. PT INSTRUCTED NOT TO USE ARM AND TO KEEP HEAD FLAT ON PILLOW W LEG STRAIGHT, HE VERBALIZED UNDERSTANDING. HR NSR RATE 67, BP 166/79, RR 15, SAT 94. CALL LIGHT IN REACH, AT BEDSIDE
[2019-12-05] MEDS ORDERED: PLAVIX75 MG PO (15:43)
--- NOTE | 2019-12-05 16:00 | NUR ---
PT RESTING COMFORTABLY. ZBAND AND IMMOBILIZER IN PLACE, NO S/S HEMATOMA. R GROIN SOFT, DRESSING CDI NO S/S HEMATOMA. VSS. CALL LIGHT IN REACH. DR WHITT AT , NO NEW ORDERS RECEIVED.
--- NOTE | 2019-12-05 16:45 | NUR ---
PT TOLERATING PO FLUIDS W/O DIFFICULITY. DENIES PAIN OR DISCOMFORT. ZBAND AND IMMOBILIZER IN PLACE, NO S/S HEMATOMA. R GROIN SOFT, DRESSING REMAINS CDI NO S/S HEMATOMA NOTED. VSS. CALL LIGHT IN REACH, AT BS
--- NOTE | 2019-12-05 17:15 | NUR ---
PT RESTING WELL. ZBAND AND IMMOBILIZER IN PLACE, NO S/S HEMATOMA. R GROIN SOFT, DRESSING CDI NO S/S HEMATOMA. VSS. CALL LIGHT IN REACH
--- NOTE | 2019-12-05 17:45 | NUR ---
PT CONTINUES DOING WELL, DENIES PAIN OR DISCOMFORT. R GROIN SOFT, DRESSING CDI NO S/S HEMATOMA. ZBAND AND IMMOBILIZER IN PLACE, NO S/S HEMATOMA OR BLEEDING NOTED. VSS CALL LIGHT IN REACH
--- NOTE | 2019-12-05 18:20 | NUR ---
R GROIN SOFT, DRESSING REMAINS CDI NO S/S HEMATOMA. 5 CC AIR REMOVED FROM Z BAND, BLEEDING NOTED. AIR REPLACED, WILL WATCH FOR NOW. HOB ELEVATED SLIGHTLY, SANDWICH AND DRINK SERVED.
--- NOTE | 2019-12-05 18:32 | NUR ---
4CC AIR REMOVED FROM Z BAND, NO BLEEDING NOTED.
--- NOTE | 2019-12-05 18:49 | NUR ---
3 ADD'L CC AIR REMOVED FROM Z BAND, NO BLEEDING NOTED. R GROIN SOFT, DRESSING REMAINS CDI NO S/S HEMATOMA ON EITHER SITE. VSS. PT TOLERATED DINNER W/O DIFFICULITY. VOIDED 500 CC URINE IN URINAL. CALL LIGHT REMAINS AT BS
--- NOTE | 2019-12-05 19:12 | NUR ---
3 MORE CC AIR REMOVED FROM Z BAND. NO BLEEDING NOTED. GROIN SOFT, NO S/S HEMATOMA. DISCHARGE INSTRUCTIONS REVIEWED W PT AND , EXPLAINED IMPORTANCE OF GETTING PLAVIX FILLED AND STARTING THAT TOMORROW. THEY BOTH VERBALIZED UNDERSTANDING. IV REMOVED W CATH INTACT, MONITORS REMOVED. PT UP TO DRESS FOR DISCHARGE W ASSIST FROM .
--- NOTE | 2019-12-05 19:29 | NUR ---
1919 ZBAND AND REMAINING AIR REMOVED NO BLEEDING NOTED. SITE CLEANED AND 2X2 AND SM TEGADERM DRESSING APPLIED. IMMOBILIZER RE POSITIONED. 1929 PT DISCHARGED VIA WC TO WAITING IN PRIVATE VEHICLE. PT HAD ALL BELONGINGS AND DISCHARGE PAPERWORK
== END 2019-12-05 19:30 | disposition home or self-care (01) ==
LOC: D.CATH 11:01
PROVIDERS: ATTEND Internal Medicine Cardiovascular Disease
DX: I25.119 Atherosclerotic heart disease of native coronary artery with unspecified angina pectoris (principal); R94.39 Abnormal result of other cardiovascular function study; E78.5 Hyperlipidemia, unspecified; I10 Essential (primary) hypertension